=== PATIENT | female | born 1995 | race Caucasian/White ===

== ENCOUNTER 2018-06-16 20:15 | Emergency (ER) | payer MEDICAID ==
[~2018-06-16] VITALS: Ht 162.6 cm; Wt 76.8 kg
[2018-06-16 20:30] VITALS: BP 135/63
--- NOTE | 2018-06-16 20:40 | NUR ---
PT AMBULATED BACK TO [facility]
--- NOTE | 2018-06-16 21:15 | NUR ---
PATIENT AMBULATED TO ER CHAIR A.
--- NOTE | 2018-06-16 21:20 | NUR ---
PT IS A 23 Y/O FEMALE WHO PRESENTS TO THE ED C/O EAR PAIN. PER PT WAX WAS BUILDING UP X5 DAYS AGO, PT ATTEMPTED TO DO HOME REMEDIES BUT FELT SOMETHING MOVE AND WENT DEEPER. PT DENIES PAIN AT THIS TIME. PT DENIES CP, SOB, N/V/D. PT AWAKE AND ALERT, RR EVEN/UNLABORED. PT REPOSITIONED FOR COMFORT, BED IN LOWEST POSITION. ER PROVIDER NOTIFIED. WILL CONTINUE TO MONITOR. [facility] HX-NONE
[2018-06-16 22:00] VITALS: BP 127/75
--- NOTE | 2018-06-16 22:00 | NUR ---
Patient discharged with v/s stable. Written and verbal after care instructions given and explained. Patient alert, oriented and verbalized understanding of instructions. Ambulatory with steady gait. All questions addressed prior to discharge. ID band removed. Patient advised to follow up with PMD. Rx of DEBROX 6.5% OTIC DROPS given. Patient educated on indication of medication including possible reaction and side effects. Opportunity to ask questions provided and answered.
== END 2018-06-16 22:00 | disposition home or self-care (01) ==
LOC: MED 20:15
DX: H61.22 Impacted cerumen, left ear (principal)
CPT/HCPCS: 99283